=== PATIENT | female | born 1990 | race Caucasian/White ===

== ENCOUNTER 2017-10-13 19:40 | Inpatient (IN) | payer OTHER ==
[2017-10-13] MEDS ORDERED: PENICILLIN G POTASSIUM 5,000,000 UNIT in DEXTROSE 5% IN WATER 100 ML IVPB STA ×2 (20:11)
[2017-10-13] MEDS ORDERED: OXYTOCIN 10 UNIT/ML 1 ML VIAL IM PRN (20:11)
[2017-10-13] MEDS ORDERED: METHYLERGONOVINE 0.2 MG/ML 1 ML AMP IM PRN (20:11)
[2017-10-13] MEDS ORDERED: TERBUTALINE 1 MG/ML VIAL SQ PRN (20:11)
[2017-10-13] MEDS ORDERED: LIDOCAINE 1% (PF) 10 MG/ML (30 ML SDV) SQ PRN (20:11)
[2017-10-13] MEDS ORDERED: CARBOPROST TROMETHAMINE 250 MCG/ML 1 ML AMP IM PRN (20:11)
[2017-10-13] MEDS ORDERED: OXYTOCIN 20 UNITS/1000 ML NS 1,000 ML IV SCH ×2 (20:15→23:45)
[2017-10-13] MEDS ORDERED: LACTATED RINGERS 1,000 ML IV SCH ×2 (20:15)
[2017-10-13 20:55] LABS: Basophils # (A) 0.1 k/uL (0-0.2); Basophils % (A) 1 %; Eosinophils # (A) 0.2 k/uL (0-0.7); Eosinophils % (A) 2 %; HCT 35.5 % (34.0-46.0); HGB 11.6 gm/dL (11.4-16.0); Lymphocytes # (A) 3.3 k/uL (1.0-4.8); Lymphocytes % (A) 33 %; MCH 26.6 pg (25.0-35.0); MCHC 32.6 g/dL (31.0-37.0); MCV 81.6 fL (80.0-100.0); Mean Platelet Volume 7.3; Monocytes # (A) 0.6 k/uL (0-1.0); Monocytes % (A) 6 %; Neutrophils # (A) 5.8 k/uL (1.3-7.7); Neutrophils % (A) 57 %; Platelet Count 280 k/uL (150-450); RBC 4.35 m/uL (3.80-5.40); RDW 15.1 % (11.5-15.5); WBC 10.1 k/uL (3.8-10.6)
[2017-10-13 21:27] LABS: Appearance,Urine Clear (Clear); Bilirubin,Urine Negative (Negative); Blood,Urine Negative (Negative); Color,Urine Yellow; Glucose,Urine (UA) Negative (Negative); Ketones,Urine Negative (Negative); Leukocyte Esterase,Urine Small (Negative); Mucus,Urine Rare /hpf; Nitrite,Urine Negative (Negative); Protein,Urine Negative (Negative); RBC,Urine 1 /hpf (0-5); Specific Gravity,Urine 1.012 (1.001-1.035); Squamous Epithelial Cell,Urine 1 /hpf (0-4); WBC,Urine 1 /hpf (0-5)
[2017-10-13 21:38] LABS: Amphetamine Screen,Urine Not Detected (NotDetected); Barbiturate Screen,Urine Not Detected (NotDetected); Benzodiazepines Screen,Urine Not Detected (NotDetected); Cocaine Screen,Urine Not Detected (NotDetected); Methadone Screen, Urine Detected (NotDetected); Opiate Screen,Urine Not Detected (NotDetected); Oxycodone Screen, Urine Not Detected (NotDetected); Phencyclidine Screen,Urine Not Detected (NotDetected); Tricyclic Antidepressant,Urine Not Detected (NotDetected); Urn Cannabinoid Scrn Not Detected (NotDetected)
[2017-10-13] MEDS ORDERED: ROPIVACAINE 100 MG, fentaNYL (PF) 200 MCG in SODIUM CHLORIDE 0.9% 76 ML EPIDURAL ONE (21:38)
--- NOTE | 2017-10-13 23:02 | P.HPOB ---
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 She is found to be in early active labor with all signs reassuring. She has had late care done through a physician in the area of [facility] in [facility] who she is uncertain of the name. She does carry a history of narcotic substance use and apparently has been on methadone for several months. She reports that her is otherwise been uncomplicated. No labs are available at this time and GBS status is unknown. Obstetrical history: 3 para 2001 with 2 previous term vaginal deliveries without complications. Current statistics are listed in history of present illness. EDC as per the patient report. There is no laboratory workup available though at this time her blood type is O+ based upon labs drawn here. The remainder of the labs are pending. Gynecologic history: Reportedly unremarkable with no history of any infections during the . Review of Systems Review of systems is confined to history of present illness. Past Medical History History of Any Multi-Drug Resistant Organisms: None Reported Smoking Status: Current every day smoker Medications and Allergies Allergies Allergy/AdvReac Type Severity Reaction Status Date / Time No Known Allergies Allergy Verified 10/13/17 20:09 Exam Intake and Output 10/13/17 10/13/17 10/13/17 06:59 14:59 22:59 Intake Total 1100 Output Total 300 Balance 800 Intake: IV 1000 Lactated Ringers 1,000 ml 1000 @ 999 mls/hr IV .Q1H1M [facility] Rx#:[id number] Oral 100 Output: Urine 300 Other: # Voids 1 Weight 85.729 kg In general, this is a well-developed, well-nourished white female in no acute distress though she is in labor. Her heart has a regular rhythm and rate without murmur. Her lungs are clear to auscultation bilaterally in all lafleur. Her abdomen is gravid, nondistended, has normal active bowel sounds, soft, nontender, and without any palpable masses aside from uterine fundus. Her extremities are without any cyanosis, clubbing, or significant edema and are nontender to palpation bilaterally. Digital cervical examination demonstrates her cervix to be dilated to a rim, 100% effaced, the vertex in presentation at approximately 0 station. Artificial rupture of membranes is carried out demonstrating a small amount of what appears to be clear fluid. Results Result Diagrams: 10/13/17 20:42 10/13/17 20:42 Abnormal Lab Results - Last 24 Hours (Table) 10/13/17 Range/Units 21:10 Ur Leukocyte Esterase Small H (Negative) Urine Mucus Rare H (None) /hpf Urine Methadone Screen Detected H (NotDetected) Assessment and Plan (1) Active labor at term Current Visit: Yes Status: Acute Code(s): PUG6207 - SNOMED Code(s): 27306845 (2) No care in current Current Visit: Yes Status: Acute Code(s): O09.30 - SUPRVSN OF PREG W INSUFFICIENT ANTENAT CARE, UNSP TRIMESTER SNOMED Code(s): 7916422954629 (3) Substance abuse Current Visit: Yes Status: Acute Code(s): F19.10 - OTHER PSYCHOACTIVE SUBSTANCE ABUSE, UNCOMPLICATED SNOMED Code(s): 00124811 Plan: The patient is admitted for active management of labor. An epidural catheter has been placed for analgesia. She will continue to have close maternal and surveillance and expectant management will be practiced. As her group B strep status is unknown, penicillin prophylaxis has been started. Anticipate normal vaginal delivery in the near future.
[2017-10-13] MEDS ORDERED: SIMETHICONE 80 MG CHEWABLE PO PRN (23:33)
[2017-10-13] MEDS ORDERED: diphenhydrAMINE 50 MG CAP PO PRN (23:33)
[2017-10-13] MEDS ORDERED: BENZOCAINE/MENTHOL SPRAY 1 GM/SPRAY AEROSOL TOPICAL PRN (23:33)
[2017-10-13] MEDS ORDERED: diphenhydrAMINE 50 MG/ML 1 ML VIAL IVP PRN ×2 (23:33)
[2017-10-13] MEDS ORDERED: ZOLPIDEM 5 MG TAB PO PRN (23:33)
[2017-10-13] MEDS ORDERED: IBUPROFEN 600 MG TAB PO PRN (23:33)
[2017-10-13] MEDS ORDERED: diphenhydrAMINE 25 MG CAP PO PRN (23:33)
[2017-10-13] MEDS ORDERED: HYDROCORTISONE 2.5% RECTAL CREAM 30 GM TUBE RECTAL PRN (23:33)
[2017-10-13] MEDS ORDERED: WITCH HAZEL 1 EACH MED..PAD TOPICAL PRN (23:33)
[2017-10-13] MEDS ORDERED: ACETAMINOPHEN TAB 325 MG TAB PO PRN (23:33)
--- NOTE | 2017-10-13 23:37 | P.PROBDLV ---
Vaginal Delivery Note - . Vaginal Delivery Note: The patient is a 27-year-old 4 para 2011 admitted at 38-4/7 weeks by dating parameters she has given to us. She is admitted in early active labor with all signs reassuring. She has had some care in the area of [facility] cannot provide the name of the physician. She has a history of previous narcotic substance abuse and is currently on methadone maintenance for the last several months. She has had no local care. She denies any problems with the and has had 2 previous normal vaginal deliveries in the past. Group B strep status is unknown. As result, she had penicillin prophylaxis started and labs drawn. She had an epidural catheter placed for analgesia and made good progress to approximately a rim and 0 station at which time artificial rupture of membranes is carried out demonstrating either clear fluid or rate lately meconium-stained fluid. Shortly thereafter she pushed over the course of 1 contraction to a normal spontaneous vaginal delivery of a viable 5 lbs. 14 oz. baby boy with Apgars of 9 at 1 minute and 9 at 5 minutes delivered in the direct occiput anterior position. The placenta was delivered spontaneously, intact, and grossly normal with a grossly normal, centrally inserted three-vessel cord. The cord did lacerate during the delivery of the placenta. There were no lacerations of the perineum, vagina, or cervix. All sponge, instrument, and needle counts were correct. Both mother and infant are resting comfortably in recovery though the will be taken to special care nursery for observation secondary to the likelihood of narcotics withdrawal over the course of time. The patient is well aware of this concern.
[2017-10-14] MEDS ORDERED: PENICILLIN G POTASSIUM 2,500,000 UNIT in DEXTROSE 5% IN WATER 100 ML IVPB SCH ×2 (00:30)
[2017-10-14 01:25] VITALS: BMI 33.5
[2017-10-14] MEDS ORDERED: SENNOSIDES-DOCUSATE SODIUM 1 EACH TAB PO SCH (08:00)
--- NOTE | 2017-10-14 08:58 | P.PNOBGVD ---
Subjective - Subjective Patient reports: Reports appetite normal, Reports voiding normally, Reports pain well controlled, Reports ambulating normally : doing well, in NICU (Under observation for potential withdrawal symptoms.) Objective - Latest Vital Signs Latest vital signs: Vital Signs Temp Pulse Resp BP 10/14/17 07:25 98.1 F 65 20 124/72 10/14/17 04:00 98.1 F 61 16 118/74 10/14/17 01:30 98.2 F 78 16 114/66 10/14/17 01:00 75 16 109/59 10/14/17 00:30 75 16 118/63 10/14/17 00:15 75 16 117/64 10/14/17 00:00 86 16 100/57 10/13/17 23:45 86 16 109/68 10/13/17 23:30 97.8 F 91 16 106/63 10/13/17 20:31 98.5 F 78 22 111/70 10/13/17 20:11 97.3 F L 84 20 100/73 Intake and Output 10/13/17 10/14/17 10/14/17 22:59 06:59 14:59 Intake Total 1100 1200 Output Total 300 800 Balance 800 400 Intake: IV 1000 1200 Lactated Ringers 1,000 ml 1000 @ 999 mls/hr IV .Q1H1M [facility] Rx#:[id number] Oral 100 Output: Urine 300 400 Estimated Blood Loss 400 Other: # Voids 1 1 Weight 85.729 kg - Exam Extremities: Present: normal Abdomen: Present: normal appearance, soft Uterus: Present: normal, firm (The uterine fundus as tonic and nontender below the umbilicus.) - Labs Labs: Abnormal Lab Results - Last 24 Hours (Table) 10/13/17 Range/Units 21:10 Ur Leukocyte Esterase Small H (Negative) Urine Mucus Rare H (None) /hpf Urine Methadone Screen Detected H (NotDetected) Assessment and Plan (1) Active labor at term Current Visit: Yes Status: Acute Code(s): IXS1837 - SNOMED Code(s): 86394199 (2) No care in current Current Visit: Yes Status: Acute Code(s): O09.30 - SUPRVSN OF PREG W INSUFFICIENT ANTENAT CARE, UNSP TRIMESTER SNOMED Code(s): 8028802064092 (3) Substance abuse Current Visit: Yes Status: Acute Code(s): F19.10 - OTHER PSYCHOACTIVE SUBSTANCE ABUSE, UNCOMPLICATED SNOMED Code(s): 74848677 (4) Normal spontaneous vaginal delivery Current Visit: Yes Status: Acute Code(s): O80 - ENCOUNTER FOR FULL-TERM UNCOMPLICATED DELIVERY SNOMED Code(s): 00256443 Plan: Continue routine care. As the is being observed in the special care nursery for some time, it is possible the patient will be discharged later on today if she chooses. In the meantime, we will restart her methadone 70 mg daily.
[2017-10-14 12:45] LABS: HIV 1 AB Non-Reactive (Non-Reactive); HIV AB P24 Non-Reactive (Non-Reactive); HIV P24 AG Non-Reactive (Non-Reactive)
--- NOTE | 2017-10-14 13:12 | P.DS ---
Providers Date of admission: 10/13/17 20:12 Expected date of discharge: 10/14/17 Attending physician: Timothy Chávez Primary care physician: Stated None - Discharge Diagnosis(es) (1) Active labor at term Current Visit: Yes Status: Acute (2) No care in current Current Visit: Yes Status: Acute (3) Substance abuse Current Visit: Yes Status: Acute (4) Normal spontaneous vaginal delivery Current Visit: Yes Status: Acute Hospital Course: The patient is a 27-year-old 3 para 2001 who presents to triage with complaint of contractions and is found to be in early active labor with all signs reassuring. She had some late care in the area of [facility] and carries a history of narcotic substance abuse for which she has been placed on methadone and is in treatment at this time. reach she reports is otherwise uncomplicated and group B strep status was unknown. As result, she had antibiotic prophylaxis started and labs drawn. She made fairly quick progress to anterior lip at which time artificial rupture of membranes is carried out demonstrating what appeared to be clear fluid. She then progressed to complete and pushed over the course of 1 contraction to a normal spontaneous vaginal delivery of a viable 5 lbs. 14 oz. baby boy with Apgars of 9 at 1 minute and 9 at 5 minutes. Her course was unremarkable. As the will be kept in special care nursery for observation for at least 1 weeks time, the patient was deemed stable for discharge on day #1 and was discharged home to follow-up in the office in 6 weeks' time routinely. Discharge instructions included calling for any significantly increased bleeding or foul-smelling lochia, significantly increased fever abdominal pain, perineal complaints, breast complaints, or anything else that concerned her. She is additionally instructed to have nothing in the vagina for at least 6 weeks time to include intercourse. She understood her instructions and agrees follow up as noted above. Discharge medications included only those which she entered the hospital using as well as [id number] analgesic pain medications. Maternal blood type is O+ and rubella status is still pending at this time. Procedures: #1. Epidural analgesia #2. Artificial rupture of membranes #3. Normal spontaneous vaginal delivery #4. manager services consult Patient Condition at Discharge: Stable Plan - Discharge Summary New Discharge Prescriptions: No Action Methadone [Dolophine] 70 mg PO DAILY Discharge Medication List Methadone [Dolophine] 70 mg PO DAILY 10/14/17 [History] Follow up Appointment(s)/Referral(s): Timothy Chávez MD [STAFF PHYSICIAN] - 6 Weeks Discharge Disposition: HOME SELF-CARE
[2017-10-14] MEDS ORDERED: METHADONE 10 MG TAB PO SCH (13:15)
[2017-10-14 19:32] VITALS: BP 118/72; PULSE 78; RESP 16; TEMP 98.1
== END 2017-10-14 19:37 | disposition home or self-care (01) | DRG 774 ==
LOC: FBPOP 19:40 → 4FBP 20:12
PROVIDERS: ADMIT Obstetrics & Gynecology; ATTEND Obstetrics & Gynecology
PROC: 10E0XZZ Delivery of Products of Conception, External Approach (ICD-10-PCS; principal; 2017-10-13)
PROC: 00HU33Z Insertion of Infusion Device into Spinal Canal, Percutaneous Approach (ICD-10-PCS; 2017-10-13)
PROC: 3E0R3BZ Introduction of Anesthetic Agent into Spinal Canal, Percutaneous Approach (ICD-10-PCS; 2017-10-13)
PROC: HZ91ZZZ Pharmacotherapy for Substance Abuse Treatment, Methadone Maintenance (ICD-10-PCS; 2017-10-13)
DX: O99.334 Smoking (tobacco) complicating childbirth (principal); O98.42 Viral hepatitis complicating childbirth; Z37.0 Single live birth; F17.210 Nicotine dependence, cigarettes, uncomplicated; O99.62 Diseases of the digestive system complicating childbirth; B19.20 Unspecified viral hepatitis C without hepatic coma; K21.9 Gastro-esophageal reflux disease without esophagitis; Z3A.38 38 weeks gestation of pregnancy
CPT/HCPCS: 59025; 80306; 81001; 82947; 85025; 86762; 86850; 86900; 86901; 87340; 87390; 88307; 99213

== ENCOUNTER 2017-10-23 13:22 | Emergency (ER) | payer OTHER ==
[2017-10-23 13:57] LABS: Basophils # (A) 0.1 k/uL (0-0.2); Basophils % (A) 1 %; Eosinophils # (A) 0.2 k/uL (0-0.7); Eosinophils % (A) 3 %; HCT 30.9 % (34.0-46.0); HGB 9.8 gm/dL (11.4-16.0); Hypochromasia Slight; Lymphocytes # (A) 3.4 k/uL (1.0-4.8); Lymphocytes % (A) 43 %; MCH 25.7 pg (25.0-35.0); MCHC 31.7 g/dL (31.0-37.0); MCV 81.2 fL (80.0-100.0); Mean Platelet Volume 6.6; Monocytes # (A) 0.4 k/uL (0-1.0); Monocytes % (A) 6 %; Neutrophils # (A) 3.6 k/uL (1.3-7.7); Neutrophils % (A) 46 %; Platelet Count 418 k/uL (150-450); RBC 3.81 m/uL (3.80-5.40); RDW 14.3 % (11.5-15.5); WBC 7.9 k/uL (3.8-10.6)
[2017-10-23 14:09] LABS: ALT 189 U/L (9-52); AST 97 U/L (14-36); Albumin 3.6 g/dL (3.5-5.0); Alkaline Phosphatase 154 U/L (38-126); Anion Gap 8 mmol/L; Appearance,Urine Clear (Clear); Bacteria,Urine Rare /hpf; Bilirubin,Urine Negative (Negative); Blood Urea Nitrogen 10 mg/dL (7-17); Blood,Urine Small (Negative); Calcium 9.1 mg/dL (8.4-10.2); Carbon Dioxide 26 mmol/L (22-30); Chloride 107 mmol/L (98-107); Color,Urine Yellow; Glucose 89 mg/dL (74-99); Glucose,Urine (UA) Negative (Negative); Ketones,Urine Negative (Negative); Leukocyte Esterase,Urine Large (Negative); Mucus,Urine Rare /hpf; Nitrite,Urine Negative (Negative); PH, Urine 6.5 (5.0-8.0); Potassium 4.2 mmol/L (3.5-5.1); Protein,Urine Trace (Negative); RBC,Urine 7 /hpf (0-5); Sodium 141 mmol/L (137-145); Specific Gravity,Urine 1.019 (1.001-1.035); Squamous Epithelial Cell,Urine 1 /hpf (0-4); Total Bilirubin 0.2 mg/dL (0.2-1.3); Total Protein 6.8 g/dL (6.3-8.2); WBC,Urine 163 /hpf (0-5)
--- NOTE | 2017-10-23 14:14 | ED ---
General Adult HPI - General Chief complaint: Back Pain/Injury Stated complaint: poss kidney infection Time Seen by Provider: 10/23/17 13:34 Source: patient, RN notes reviewed Mode of arrival: ambulatory Limitations: no limitations - History of Present Illness Initial comments: This a 27yo female with past medical history of IV drug use currently on methadone, with no recent IVDU use who is 9 days from vaginal delivery who presents today for cc of left sided back pain and urgency. Patient states that for the last 2 days she has had this sensation of having a urinate post void, however she cannot. She denies any dysuria, fever, chills or night sweats. Yesterday she began noticing left-sided back pain, she states that this is a 7 out of 10 and constant sharp pain without radiation. She stated the onset was gradual. She denies any vaginal fullness, vaginal masses, midline back pain, abdominal pain, chest pain, shortness of breath, headache, photophobia, or any other associated symptoms. Patient was concerned about a bladder infection so she presented ED today. Pt dosed 70mcg of methadone today at 6:30am. VS stable upon arrival, afebrile. - Related Data Home Medications Medication Instructions Recorded Confirmed Methadone [Dolophine] 70 mg PO DAILY 10/14/17 10/23/17 Previous Rx's Medication Instructions Recorded Sulfamethox-Tmp 800-160Mg [Bactrim 1 tab PO Q12HR 14 Days #28 tab 10/23/17 DS 800-160 mg] Allergies Allergy/AdvReac Type Severity Reaction Status Date / Time No Known Allergies Allergy Verified 10/23/17 14:19 Review of Systems ROS Statement: Those systems with pertinent positive or pertinent negative responses have been documented in the HPI. ROS Other: All systems not noted in ROS Statement are negative. Constitutional: Denies: fever, chills, night sweats Eyes: Denies: vision change ENT: Denies: ear pain, throat pain Respiratory: Denies: cough, dyspnea, wheezes, hemoptysis, stridor Cardiovascular: Denies: chest pain, palpitations, dyspnea on exertion Gastrointestinal: Denies: abdominal pain, nausea, vomiting, diarrhea, constipation, hematemesis, melena, hematochezia Genitourinary: Reports: urgency. Denies: dysuria, frequency, hematuria Past Medical History Past Medical History: No Reported History History of Any Multi-Drug Resistant Organisms: None Reported Past Surgical History: Adenoidectomy, Tonsillectomy Past Anesthesia/Blood Transfusion Reactions: No Reported Reaction Past Psychological History: No Psychological Hx Reported Smoking Status: Current every day smoker Past Alcohol Use History: None Reported Past Drug Use History: Opiates - Past Family History Father Family Medical History: No Reported History General Exam - General Exam Comments Initial Comments: General: The patient is awake and alert, in no distress, and does not appear acutely ill. Eye: Pupils are equal, round and reactive to light, extra-ocular movements are intact. No nystagmus. There is normal conjunctiva bilaterally. No signs of icterus. Ears, nose, mouth and throat: There are moist mucous membranes and no oral lesions. Cardiovascular: There is a regular rate and rhythm. No murmur, rub or gallop is appreciated. Respiratory: Lungs are clear to auscultation, respirations are non-labored, breath sounds are equal. No wheezes, stridor, rales, or rhonchi. Gastrointestinal: Soft, non-distended, non-tender abdomen without masses or organomegaly noted. There is no rebound or guarding present. Left sided CVA tenderness. Bowel sounds are unremarkable. No rashes, lesion. (-) Heel jar. No signs of peritoneal irritation. No lower pelvic pain. Musculoskeletal: Normal ROM, no tenderness. Strength 5/5. Sensation intact. Pulses equal bilaterally 2+. Neurological: A&O x 3. CN II-XII intact, There are no obvious motor or sensory deficits. Coordination appears grossly intact. Speech is normal. Skin: Skin is warm and dry and no rashes or lesions are noted. Psychiatric: Cooperative, appropriate mood & affect, normal judgment. Limitations: no limitations Course Vital Signs 10/23/17 10/23/17 13:28 16:04 Temperature 98.2 F 97.9 F Pulse Rate 78 70 Respiratory 20 18 Rate Blood Pressure 123/78 108/57 O2 Sat by Pulse 98 98 Oximetry - Reevaluation(s) Reevaluation #1: Repeat abdominal exam- benign,no pain to deep palpation including RUQ. 10/23/17 14:52 Medical Decision Making - Medical Decision Making 27 with CC Of left flank/back pain and urgency concerning for possible pyelonephritis. ( day . Not . Upon arrival pt appear wells VS stable, afebrile. Exam revealed left sided CVA tenderness, no midline pain to palpation of the spine. Abdominal exam benign. CBC revealed no leukocytosis. HgB low at 9.8. CMP revealed AST 97, ALT 189 and Alk phos of 154. Pt denied RUQ upon two abdominal exams, hx (+) for Hep C. Urinalysis obtained revealed small amount of blood, large leukocyte esterase and 163 WBC it was a clean catch. Given pt is 9 day post with normal VS, platlet count we have low suspicion for HELLP syndrome at this time. Case discussed in detail with Dr. Leone who agrees with impression. Pt will be discharged on Dr. HAWKINS every 12 hours 7 days. Primary care follow-up in 1-2 days. Patient agrees to plan. Patient was given 2 g Rocephin and 500 mg bolus prior to discharge. Patient denies any questions this time. Patient was instructed to return to ED if she experiences abdominal pain, worsening or change in symptoms. Patient agreed, discharged in stable condition. - Lab Data Result diagrams: 10/23/17 13:48 10/23/17 13:48 Lab Results 10/23/17 10/23/17 10/23/17 Range/Units 13:48 13:48 13:48 WBC 7.9 (3.8-10.6) k/uL RBC 3.81 (3.80-5.40) m/uL Hgb 9.8 L (11.4-16.0) gm/dL Hct 30.9 L (34.0-46.0) % MCV 81.2 (80.0-100.0) fL MCH 25.7 (25.0-35.0) pg MCHC 31.7 (31.0-37.0) g/dL RDW 14.3 (11.5-15.5) % Plt Count 418 (150-450) k/uL Neutrophils % 46 % Lymphocytes % 43 % Monocytes % 6 % Eosinophils % 3 % Basophils % 1 % Neutrophils # 3.6 (1.3-7.7) k/uL Lymphocytes # 3.4 (1.0-4.8) k/uL Monocytes # 0.4 (0-1.0) k/uL Eosinophils # 0.2 (0-0.7) k/uL Basophils # 0.1 (0-0.2) k/uL Hypochromasia Slight Sodium 141 (137-145) mmol/L Potassium 4.2 (3.5-5.1) mmol/L Chloride 107 (98-107) mmol/L Carbon Dioxide 26 (22-30) mmol/L Anion Gap 8 mmol/L BUN 10 (7-17) mg/dL Creatinine 0.63 (0.52-1.04) mg/dL Est GFR (CKD-EPI)AfAm >90 (>60 ml/min/1.73 sqM) Est GFR (CKD-EPI)NonAf >90 (>60 ml/min/1.73 sqM) Glucose 89 (74-99) mg/dL Calcium 9.1 (8.4-10.2) mg/dL Total Bilirubin 0.2 (0.2-1.3) mg/dL AST 97 H (14-36) U/L ALT 189 H (9-52) U/L Alkaline Phosphatase 154 H (38-126) U/L Total Protein 6.8 (6.3-8.2) g/dL Albumin 3.6 (3.5-5.0) g/dL Urine Color Urine Appearance (Clear) Urine pH (5.0-8.0) Ur Specific [place] (1.001-1.035) Urine Protein (Negative) Urine Glucose (UA) (Negative) Urine Ketones (Negative) Urine Blood (Negative) Urine Nitrite (Negative) Urine Bilirubin (Negative) Urine Urobilinogen (<2.0) mg/dL Ur Leukocyte Esterase (Negative) Urine RBC (0-5) /hpf Urine WBC (0-5) /hpf Ur Squamous Epith Cells (0-4) /hpf Urine Bacteria (None) /hpf Urine Mucus (None) /hpf Urine HCG, Qual Detected (Not Detectd) 10/23/17 Range/Units 13:48 WBC (3.8-10.6) k/uL RBC (3.80-5.40) m/uL Hgb (11.4-16.0) gm/dL Hct (34.0-46.0) % MCV (80.0-100.0) fL MCH (25.0-35.0) pg MCHC (31.0-37.0) g/dL RDW (11.5-15.5) % Plt Count (150-450) k/uL Neutrophils % % Lymphocytes % % Monocytes % % Eosinophils % % Basophils % % Neutrophils # (1.3-7.7) k/uL Lymphocytes # (1.0-4.8) k/uL Monocytes # (0-1.0) k/uL Eosinophils # (0-0.7) k/uL Basophils # (0-0.2) k/uL Hypochromasia Sodium (137-145) mmol/L Potassium (3.5-5.1) mmol/L Chloride (98-107) mmol/L Carbon Dioxide (22-30) mmol/L Anion Gap mmol/L BUN (7-17) mg/dL Creatinine (0.52-1.04) mg/dL Est GFR (CKD-EPI)AfAm (>60 ml/min/1.73 sqM) Est GFR (CKD-EPI)NonAf (>60 ml/min/1.73 sqM) Glucose (74-99) mg/dL Calcium (8.4-10.2) mg/dL Total Bilirubin (0.2-1.3) mg/dL AST (14-36) U/L ALT (9-52) U/L Alkaline Phosphatase (38-126) U/L Total Protein (6.3-8.2) g/dL Albumin (3.5-5.0) g/dL Urine Color Yellow Urine Appearance Clear (Clear) Urine pH 6.5 (5.0-8.0) Ur Specific [place] 1.019 (1.001-1.035) Urine Protein Trace H (Negative) Urine Glucose (UA) Negative (Negative) Urine Ketones Negative (Negative) Urine Blood Small H (Negative) Urine Nitrite Negative (Negative) Urine Bilirubin Negative (Negative) Urine Urobilinogen 2.0 (<2.0) mg/dL Ur Leukocyte Esterase Large H (Negative) Urine RBC 7 H (0-5) /hpf Urine WBC 163 H (0-5) /hpf Ur Squamous Epith Cells 1 (0-4) /hpf Urine Bacteria Rare H (None) /hpf Urine Mucus Rare H (None) /hpf Urine HCG, Qual (Not Detectd) Disposition Clinical Impression: Low hemoglobin, Pyelonephritis Disposition: HOME SELF-CARE Condition: Good Instructions: Urinary Tract Infection in Women (ED), Kidney Infection (ED) Additional Instructions: Please use medication as discussed. Please follow-up with family doctor in the next 2 days, for repeat Hemoglobin and evaluation. Please return to emergency room if the symptoms increase or worsen or for any other concerns, as discussed. Prescriptions: Sulfamethox-Tmp 800-160Mg [Bactrim DS 800-160 mg] 1 tab PO Q12HR 14 Days #28 tab Is patient prescribed a controlled substance at d/c from ED?: No Referrals: None,Stated [Primary Care Provider] - 1-2 days [facility] [NON-STAFF] - 1-2 days Time of Disposition: 14:45
[2017-10-23] MEDS ORDERED: SODIUM CHLORIDE 0.9% 500 ML IV ONE (14:41)
[2017-10-23] MEDS ORDERED: cefTRIAXone 2,000 MG in SODIUM CHLORIDE 0.9% 100 ML IVPB STA (14:45)
[2017-10-23 16:05] VITALS: BP 108/57; PULSE 70; RESP 18; TEMP 97.9
== END 2017-10-23 16:04 | disposition home or self-care (01) ==
LOC: EC 13:22
DX: O90.89 Other complications of the puerperium, not elsewhere classified (principal); N12 Tubulo-interstitial nephritis, not specified as acute or chronic; O90.81 Anemia of the puerperium; O99.335 Smoking (tobacco) complicating the puerperium; F17.200 Nicotine dependence, unspecified, uncomplicated; Z79.899 Other long term (current) drug therapy
CPT/HCPCS: 36415; 80053; 85025; 81001; 81025; 99283; 96365; J0696

== ENCOUNTER 2018-02-05 09:45 | Emergency (ER) | payer OTHER ==
[2018-02-05 10:34] VITALS: BP 120/75; RESP 18; TEMP 98.4
[2018-02-05] MEDS ORDERED: methylPREDNISolone SOD SUCCI 125 MG/2 ML VIAL IM ONE (11:23)
[2018-02-05] MEDS ORDERED: IPRATROPIUM-ALBUTEROL 3 ML NEB INHALATION STA (11:23)
--- NOTE | 2018-02-05 11:29 | ED ---
URI HPI - General Chief Complaint: Upper Respiratory Infection Stated Complaint: WITHDRAWALS, COLD/FLU SYMPTOMS Time Seen by Provider: 02/05/18 10:44 Source: patient, RN notes reviewed, old records reviewed Mode of arrival: ambulatory Limitations: no limitations - History of Present Illness Initial Comments: Patient is a 27-year-old female who presents emergency department today with chief complaint of upper respiratory congestion, runny nose. Patient reports this had a cough. She has a smoker. 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 Patient states she is in a long term house. She is concerned if she is contagious because she does have a 3-month-old child. Patient reports that her cough has been somewhat productive. - Related Data Home Medications Medication Instructions Recorded Confirmed Methadone [Dolophine] 70 mg PO DAILY 10/14/17 10/23/17 Previous Rx's Medication Instructions Recorded Sulfamethox-Tmp 800-160Mg [Bactrim 1 tab PO Q12HR 14 Days #28 tab 10/23/17 DS 800-160 mg] Albuterol Inhaler [Ventolin Hfa 1 - 2 puff INHALATION RT-Q6H PRN 02/05/18 Inhaler] #1 inhaler Azithromycin [Zithromax Z-pack] 250 mg PO DIRECTED #6 tab 02/05/18 methylPREDNISolone Dose Pack 4 mg PO DIRECTED #21 package 02/05/18 [Medrol Dose Pack] Allergies Allergy/AdvReac Type Severity Reaction Status Date / Time No Known Allergies Allergy Verified 02/05/18 11:01 Review of Systems ROS Statement: Those systems with pertinent positive or pertinent negative responses have been documented in the HPI. ROS Other: All systems not noted in ROS Statement are negative. Past Medical History Past Medical History: No Reported History History of Any Multi-Drug Resistant Organisms: None Reported Past Surgical History: Adenoidectomy, Tonsillectomy Past Anesthesia/Blood Transfusion Reactions: No Reported Reaction Past Psychological History: Anxiety, Depression Smoking Status: Current every day smoker Past Alcohol Use History: None Reported Past Drug Use History: Opiates - Past Family History Father Family Medical History: No Reported History General Exam - General Exam Comments Initial Comments: 27-year-old female. Alert and oriented. Limitations: no limitations General appearance: alert, in no apparent distress Head exam: Present: atraumatic, normocephalic, normal inspection Eye exam: Present: normal appearance, PERRL, EOMI. Absent: scleral icterus, conjunctival injection, periorbital swelling ENT exam: Present: normal exam, mucous membranes moist Neck exam: Present: normal inspection. Absent: tenderness, meningismus, lymphadenopathy Respiratory exam: Present: wheezes. Absent: normal lung sounds bilaterally, respiratory distress, rales, rhonchi, stridor Cardiovascular Exam: Present: regular rate, normal rhythm, normal heart sounds. Absent: systolic murmur, diastolic murmur, rubs, gallop, clicks GI/Abdominal exam: Present: soft, normal bowel sounds. Absent: distended, tenderness, guarding, rebound, rigid Extremities exam: Present: normal inspection, full ROM, normal capillary refill. Absent: tenderness, pedal edema, joint swelling, calf tenderness Back exam: Present: normal inspection Neurological exam: Present: alert, oriented X3, CN II-XII intact Psychiatric exam: Present: normal affect, normal mood Course Vital Signs 02/05/18 02/05/18 02/05/18 10:29 10:50 11:38 Temperature 98.4 F Pulse Rate 69 92 Respiratory 18 18 Rate Blood Pressure 120/75 O2 Sat by Pulse 99 Oximetry 02/05/18 11:49 Temperature Pulse Rate 88 Respiratory Rate Blood Pressure O2 Sat by Pulse Oximetry Medical Decision Making - Medical Decision Making 27 rolled female currently withdrawing from opiates respiratory with upper a story congestion and cough. And the symptoms she does have wheezing noted. She was given IM Solu-Medrol, chest x-ray completed and DuoNeb. Patient isn't breathing. Oropharynx appears normal. She is complaining of some postnasal drip. Chest x-ray shows evidence of bronchitis. No evidence of pneumonia. Patient distends advised on smoking cessation. Discussed smoking cessation greater than 10 minutes. Discussed the Patient should follow-up with primary care physician. In the meantime we'll put the Patient on inhaler steroid pack and Z-Lavell. Discussed strict return parameters. - Radiology Data Radiology results: report reviewed Correlate for bronchitis, reactive airway disease follow-up is indicated. Disposition Clinical Impression: Bronchitis Disposition: HOME SELF-CARE Condition: Good Instructions: Acute Bronchitis (ED) Additional Instructions: Patient has a close follow up with primary care provider. Return to emergency department if any alarming signs or symptoms occur. Take medications as prescribed. Continue smoking cessation. Prescriptions: Albuterol Inhaler [Ventolin Hfa Inhaler] 1 - 2 puff INHALATION RT-Q6H PRN #1 inhaler PRN Reason: Shortness Of Breath Azithromycin [Zithromax Z-pack] 250 mg PO DIRECTED #6 tab methylPREDNISolone Dose Pack [Medrol Dose Pack] 4 mg PO DIRECTED #21 package Is patient prescribed a controlled substance at d/c from ED?: No Referrals: Dawna Montalvo MD [Primary Care Provider] - 1-2 days Time of Disposition: 11:56
[2018-02-05 11:51] VITALS: PULSE 88
--- NOTE | 2018-02-05 11:53 | XR ---
EXAMINATION TYPE: XR chest 2V DATE OF EXAM: 02/05/2018 COMPARISON: NONE HISTORY: Cough and nasal congestion, pain TECHNIQUE: Frontal and lateral views of the chest are obtained. FINDINGS: There is no focal air space opacity, pleural effusion, or pneumothorax seen. The cardiac silhouette size is within normal limits. Gentle spinal curvature is present. The osseous structures are intact. There is bronchial wall thickening. IMPRESSION: Correlate for bronchitis, reactive airways disease, follow-up as indicated
== END 2018-02-05 12:21 | disposition home or self-care (01) ==
LOC: EC 09:45
DX: J40 Bronchitis, not specified as acute or chronic (principal); F17.200 Nicotine dependence, unspecified, uncomplicated; Z71.6 Tobacco abuse counseling; Z79.891 Long term (current) use of opiate analgesic
CPT/HCPCS: 99284; 99407; 96372; 94640; 71046; J2930